=== PATIENT | female | born 1960 | race Caucasian/White ===

== ENCOUNTER 2020-09-22 09:24 | Emergency (ER) | payer BC ==
[2020-09-22] MEDS ORDERED: Sodium Chloride 0.9% 1,000 ML IV ONE (09:40)
[2020-09-22] MEDS ORDERED: Nitroglycerin 0.4 MG Tab.SL SL PRN (09:43)
[2020-09-22] MEDS ORDERED: Aspirin 81 MG Tab.Chew PO ONE ×2 (09:44→09:56)
--- NOTE | 2020-09-22 09:52 | EDM.PDOC ---
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, was at gym, had been on treadmill for 5 min walking at a slow pace brought her straight to ED, no NTG pain 11/05, dec'd 09/05 after 1st NTG on arrival EKG before NTG with no ST elevation or depression, nonspecific T-wave changes, no comparison pt walks on treadmill 25 minutes daily she GA 3.5y ago (January 2017), of the "widowmaker" per , has one stent in [facility], has done fine every since, taking meds including ASA 81 mg PO this AM sees PCP Dr Stephenson in [place], not seen cardiology in 5y, not had EST in 5y awake at 5:30a today, felt fine then - Related Data Allergies Allergy/AdvReac Type Severity Reaction Status Date / Time iodine Allergy Anaphylactic Verified 02/28/13 07:22 Shock shellfish derived Allergy Hives Verified 12/20/15 10:36 codeine AdvReac Nausea Verified 10/26/15 08:17 diazepam [From Valium] AdvReac Nausea Verified 10/26/15 08:17 CONTRAST DYE (IVP DYE) Allergy Bronchospas Uncoded 10/25/15 10:36 ms Home Meds: Home Meds DULoxetine [Cymbalta] 60 mg PO BID 02/28/13 [History] cloNIDine [Catapres] 0.2 mg PO TID 02/28/13 [History] Estrogens, Conjugated [Premarin] 1.25 mg PO DAILY 01/29/14 [History] Cholecalciferol (Vitamin D3) [Vitamin D3] 1,200 units PO DAILY 10/25/15 [History] ClonazePAM [KlonoPIN] 1 mg PO TID 10/25/15 [History] Fluticasone Propionate [Flonase] 1 spray NASBOTH BID 10/25/15 [History] Morphine [MS Contin] 15 mg PO BID 10/25/15 [History] Nitroglycerin [Nitrostat] 0.4 mg SL ASDIRECTED PRN 10/25/15 [History] Vit No.124/Iron/Folic [ Vitamin Tablet] 1 tab PO DAILY 10/25/15 [History] Vitamin B Complex 1 each PO DAILY 10/25/15 [History] Albuterol [Ventolin HFA] 2 puff INH ASDIRECTED PRN 12/20/15 [History] Benzonatate [Tessalon Perles] 200 mg PO TID PRN 12/20/15 [History] Past Medical History HEENT History: Reports: None Cardiovascular History: Reports: Hypertension, Other (See Below) Other Cardiovascular History: CHEST PAIN Respiratory History: Reports: SOB Gastrointestinal History: Reports: None Genitourinary History: Reports: Other (See Below) Other Genitourinary History: URINARY FREQUENCY IT RISK ANALYST History: Reports: Musculoskeletal History: Reports: None Neurological History: Reports: Headaches, Chronic, Migraines Other Neuro History: NUMBNESS, NEUROGENIC PAIN Psychiatric History: Reports: Depression Endocrine/Metabolic History: Reports: Obesity/BMI 30+ Hematologic History: Reports: None Immunologic History: Reports: None Oncologic (Cancer) History: Reports: None Dermatologic History: Reports: Other (See Below) Other Dermatologic History: HX SHINGLES - Infectious Disease History Infectious Disease History: Reports: Chicken Pox, Measles, Mumps, Rubella, Shingles - Past Surgical History GI Surgical History: Reports: Appendectomy, Bariatric Procedure, Hernia Repair/Other, Other (See Below) Female Surgical History: Reports: Section, Hysterectomy, Tubal Ligation ED ROS GENERAL - Review of Systems Review Of Systems: See Below Constitutional: Reports: No Symptoms HEENT: Reports: No Symptoms Respiratory: Reports: No Symptoms Cardiovascular: Reports: Chest Pain. Denies: Lightheadedness Endocrine: Reports: No Symptoms GI/Abdominal: Reports: No Symptoms. Denies: Nausea, Vomiting : Reports: No Symptoms Musculoskeletal: Reports: No Symptoms Skin: Reports: No Symptoms Neurological: Reports: No Symptoms Psychiatric: Reports: No Symptoms Hematologic/Lymphatic: Reports: No Symptoms Immunologic: Reports: No Symptoms ED EXAM, GENERAL - Physical Exam Exam: See Below Exam Limited By: No Limitations General Appearance: Alert, WD/WN, No Apparent Distress Ears: Hearing Grossly Normal Nose: Normal Inspection Throat/Mouth: Normal Inspection, Normal Lips, Normal Teeth, Normal Voice, No Airway Compromise Head: Atraumatic, Normocephalic Neck: Normal Inspection, Supple, Non-Tender, Full Range of Motion. No: Lymphadenopathy (R), Lymphadenopathy (L) Respiratory/Chest: No Respiratory Distress, Lungs Clear, Normal Breath Sounds, No Accessory Muscle Use, Chest Non-Tender Cardiovascular: Regular Rate, Rhythm, No Edema, No Gallop, No JVD, No Murmur, No Rub GI/Abdominal: Soft, Non-Tender, No Distention Back Exam: Normal Inspection, Full Range of Motion, NT Extremities: Normal Inspection, Normal Range of Motion, Non-Tender, Other (trace pretib edema b/l) Neurological: Alert, Oriented, CN II-XII Intact, Normal Cognition, No Motor/Sensory Deficits Psychiatric: Normal Affect, Normal Mood Skin Exam: Warm, Dry, Intact, Normal Color, No Rash Lymphatic: No Adenopathy Course - Orders/Labs/Meds Orders: Active Orders 24 hr Category Date Time Status EKG Documentation Completion [RC] ASDIRECTED Care 09/22/20 09:40 Active Chest 1V Frontal [CR] Stat Exams 09/22/20 09:41 Taken Heparin Sodium Med 09/22/20 11:00 Once 3,680 units IVPUSH ONETIME ONE Heparin Sodium/0.45% NaCl [Heparin 25,000 Units in 1/2 Med 09/22/20 10:45 Ordered NS 500 ML] 25,000 units in 500 ml IV TITRATE EKG 12 Lead [EK] Routine Ther 09/22/20 09:40 Ordered Medication Orders Heparin Sodium (Porcine) (Heparin Sodium 5,000 Units/Ml Vial) 3,680 units IVPUSH ONETIME ONE Stop: 09/22/20 11:01 Heparin Sodium/Sodium Chloride (Heparin 25,000 Units In 1/2 Ns 500 Ml) 25,000 units in 500 mls @ 14.718 mls/hr IV TITRATE WILD; Protocol Labs: Laboratory Tests 09/22/20 09/22/20 09/22/20 Range/Units 09:55 09:55 09:55 WBC 5.1 (3.0-10.3) x10-3/uL RBC 4.18 (3.60-5.20) x10(6)uL Hgb 13.4 (11.4-15.5) g/dL Hct 39.4 (34.2-48.2) % MCV 94.3 (76.7-100.5) fL MCH 32.0 (23.9-33.9) pg MCHC 34.0 (31.9-34.8) g/dL RDW 12.6 (12.3-16.5) % Plt Count 342 (151-488) x10(3)uL MPV 8.8 (7.1-12.4) fL Neut % (Auto) 53.9 (30.8-76.2) % Lymph % (Auto) 34.1 (18.4-52.1) % Pender % (Auto) 9.3 (4.4-15.7) % Eos % (Auto) 2.1 (0.6-8.1) % Baso % (Auto) 0.6 (0.2-1.5) % Neut # (Auto) 2.8 (1.5-6.3) x10-3/uL Lymph # (Auto) 1.7 (1.0-4.4) x10-3/uL Pender # (Auto) 0.5 (0.3-1.0) x10-3/uL Eos # (Auto) 0.1 (0.0-0.8) x10-3/uL Baso # (Auto) 0.0 (0.0-0.1) x10-3/uL PT (9.0-11.1) sec INR (1.00-1.24) D-Dimer, Quantitative (0.0-0.59) mg/LFEU Sodium 141 (135-145) mmol/L Potassium 4.0 (3.5-5.3) mmol/L Chloride 102 (100-110) mmol/L Carbon Dioxide 28 (21-32) mmol/L BUN 16 (7-18) mg/dL Creatinine 0.9 (0.55-1.02) mg/dL Est Cr Clr Drug Dosing TNP Estimated GFR (MDRD) > 60 (>60) BUN/Creatinine Ratio 17.8 (9-20) Glucose 107 (80-116) mg/dL Calcium 8.5 L (8.6-10.2) mg/dL Magnesium 1.8 (1.8-2.5) mg/dL Total Bilirubin 0.5 (0.1-1.3) mg/dL AST 21 (5-25) IU/L ALT 31 (12-36) U/L Alkaline Phosphatase 112 (56-112) IU/L Troponin I 5.8 (4.0-60.3) pg/mL C-Reactive Protein 0.3 L (0.5-0.9) mg/dL NT-Pro-B Natriuret Pep 86 (<=125) pg/mL Total Protein 6.7 (6.0-8.0) g/dL Albumin 3.3 L (3.5-5.2) g/dL Globulin 3.4 g/dL Albumin/Globulin Ratio 1.0 09/22/20 Range/Units 09:55 WBC (3.0-10.3) x10-3/uL RBC (3.60-5.20) x10(6)uL Hgb (11.4-15.5) g/dL Hct (34.2-48.2) % MCV (76.7-100.5) fL MCH (23.9-33.9) pg MCHC (31.9-34.8) g/dL RDW (12.3-16.5) % Plt Count (151-488) x10(3)uL MPV (7.1-12.4) fL Neut % (Auto) (30.8-76.2) % Lymph % (Auto) (18.4-52.1) % Pender % (Auto) (4.4-15.7) % Eos % (Auto) (0.6-8.1) % Baso % (Auto) (0.2-1.5) % Neut # (Auto) (1.5-6.3) x10-3/uL Lymph # (Auto) (1.0-4.4) x10-3/uL Pender # (Auto) (0.3-1.0) x10-3/uL Eos # (Auto) (0.0-0.8) x10-3/uL Baso # (Auto) (0.0-0.1) x10-3/uL PT 12.7 H (9.0-11.1) sec INR 1.19 (1.00-1.24) D-Dimer, Quantitative 0.19 (0.0-0.59) mg/LFEU Sodium (135-145) mmol/L Potassium (3.5-5.3) mmol/L Chloride (100-110) mmol/L Carbon Dioxide (21-32) mmol/L BUN (7-18) mg/dL Creatinine (0.55-1.02) mg/dL Est Cr Clr Drug Dosing Estimated GFR (MDRD) (>60) BUN/Creatinine Ratio (9-20) Glucose (80-116) mg/dL Calcium (8.6-10.2) mg/dL Magnesium (1.8-2.5) mg/dL Total Bilirubin (0.1-1.3) mg/dL AST (5-25) IU/L ALT (12-36) U/L Alkaline Phosphatase (56-112) IU/L Troponin I (4.0-60.3) pg/mL C-Reactive Protein (0.5-0.9) mg/dL NT-Pro-B Natriuret Pep (<=125) pg/mL Total Protein (6.0-8.0) g/dL Albumin (3.5-5.2) g/dL Globulin g/dL Albumin/Globulin Ratio Meds: Medications Generic Name Dose Route Start Last Admin Trade Name Freq PRN Reason Stop Dose Admin Heparin Sodium (Porcine) 3,680 units 09/22/20 11:00 Heparin Sodium 5,000 Units/Ml Vial IVPUSH 09/22/20 11:01 ONETIME ONE Heparin Sodium/Sodium Chloride 25,000 units in 500 mls @ 14.718 mls/hr 09/22/20 10:45 Heparin 25,000 Units In 1/2 Ns 500 Ml IV TITRATE WILD Protocol 12 UNITS/KG/HR Discontinued Medications Generic Name Dose Route Start Last Admin Trade Name Freq PRN Reason Stop Dose Admin Aspirin 243 mg 09/22/20 09:44 Aspirin 81 Mg Tab.Chew PO 09/22/20 09:45 ONETIME ONE Sodium Chloride 1,000 mls @ 999 mls/hr 09/22/20 09:40 Normal Saline IV 09/22/20 10:40 .BOLUS ONE Ticagrelor 180 mg 09/22/20 10:57 Ticagrelor 90 Mg Tab PO 09/22/20 10:58 ONETIME ONE - Re-Assessments/Exams Free Text/Narrative Re-Assessment/Exam: 09/22/20 10:59 d/w Dr Arce at [facility] who accepted pt in transfer, he requested Brilanta 180 mg PO in addition to the heparin no CP after NTG SL 0.4 mg x 2 initial EKG with 5/10 CP showed small R-waves in I and V6, otherwise Q-waves and flipped Ts throughout repeat EKG with 0/10 CP showed normal R-waves throughout and minimal ST elevation anterior leads initial trop neg EKG changes c/w occlusion of left main stent vs new left main lesion reports that pt had cognitive impairment since her GA, poor short and group home memory, remembers names, not able to remember birthdates she smoked for many yrs but not able to remember how long CxR 1v on prelim ED read with hyperinflation and no infiltrates or effusions pt has had COVID vax pt has stable vital signs Departure - Departure Time of Disposition: 10:58 Disposition: DC/Tfer to Acute Hospital 02 Reason for Transfer *Q: Other Condition: Good Clinical Impression: Acute coronary syndrome, Unstable angina - My Orders Last 24 Hours: My Active Orders 09/22/20 09:40 EKG Documentation Completion [RC] ASDIRECTED EKG 12 Lead [EK] Routine 09/22/20 09:41 Chest 1V Frontal [CR] Stat 09/22/20 10:45 Heparin Sodium/0.45% NaCl [Heparin 25,000 Units in 1/2 NS 500 ML] 25,000 units in 500 ml IV TITRATE 09/22/20 11:00 Heparin Sodium 3,680 units IVPUSH ONETIME ONE - Assessment/Plan Last 24 Hours: My Active Orders 09/22/20 09:40 EKG Documentation Completion [RC] ASDIRECTED EKG 12 Lead [EK] Routine 09/22/20 09:41 Chest 1V Frontal [CR] Stat 09/22/20 10:45 Heparin Sodium/0.45% NaCl [Heparin 25,000 Units in 1/2 NS 500 ML] 25,000 units in 500 ml IV TITRATE 09/22/20 11:00 Heparin Sodium 3,680 units IVPUSH ONETIME ONE
[2020-09-22] MEDS ORDERED: Heparin Sodium/0.45% NaCl 25,000 UNITS/500 ML BAG IV SCH (10:45)
[2020-09-22] MEDS ORDERED: Ticagrelor 90 MG Tab PO ONE (10:57)
[2020-09-22] MEDS ORDERED: Heparin Sodium 5,000 Units/ML Vial IVPUSH ONE (11:00)
[2020-09-22 11:12] VITALS: PULSE 80
[2020-09-22 11:49] VITALS: BP 95/67
--- NOTE | 2020-09-24 11:55 | CR ---
INDICATION: Chest pain. CHEST, ONE VIEW: An AP upright portable view of the chest was obtained 09/22/20 - no comparisons. The heart appeared normal in size and shape. There are mitral annular calcifications noted. Calcification is also noted in the arch of the aorta. A minimal dextroconcave scoliosis of the lower middle thoracic spine is noted. Overlying EKG leads are noted. An active infiltrate or effusion was not identified. IMPRESSION: No acute process. MTDD
== END 2020-09-22 11:23 ==
LOC: FB.ED 09:24
DX: I24.9 Acute ischemic heart disease, unspecified (principal); I10 Essential (primary) hypertension; F17.200 Nicotine dependence, unspecified, uncomplicated; E66.9 Obesity, unspecified; Z68.21 Body mass index [BMI] 21.0-21.9, adult; Z88.8 Allergy status to other drugs, medicaments and biological substances; Z91.041 Radiographic dye allergy status; Z91.013 Allergy to seafood; Z88.5 Allergy status to narcotic agent; Z79.899 Other long term (current) drug therapy
CPT/HCPCS: 36415; 71045; 80053; 83735; 83880; 84484; 85025; 85379; 85610; 85730; 86140; 93005; 93010; 96365; 99284; 99285-25; A9270-GY; J1644; J7030

== ENCOUNTER 2024-04-04 06:28 | Day surgery (SDC) | payer BC ==
[~2024-04-04 06:28] MED LIST: Sodium Chloride 0.9% 10 ML Syringe FLUSH PRN
[2024-04-04] MEDS ORDERED: Lidocaine 2% 100 MG/5 ML Syringe IVPUSH ONE (06:29)
[2024-04-04] MEDS ORDERED: Propofol 200 MG/20 ML SDV IV ONE (06:29)
[2024-04-04] MEDS: Lactated Ringers 1,000 ML IV SCH (07:28)
[2024-04-04] MEDS: Simethicone Drops 40 MG/0.6 ML 30 ML Bottle ONE (07:45)
[2024-04-04 09:14] VITALS: BP 119/69; PULSE 64
== END 2024-04-04 09:05 | disposition home or self-care (01) ==
LOC: FB.SDS 06:28
PROVIDERS: ATTEND Surgery
DX: Z12.11 Encounter for screening for malignant neoplasm of colon (principal); Z80.0 Family history of malignant neoplasm of digestive organs; K21.9 Gastro-esophageal reflux disease without esophagitis; I10 Essential (primary) hypertension; E78.5 Hyperlipidemia, unspecified; Z87.891 Personal history of nicotine dependence
CPT/HCPCS: 45378; A9270; J2704; J7120